=== PATIENT | female | born 1970 | race Caucasian/White ===

== ENCOUNTER 2020-10-21 11:00 | Outpatient (RCR) | payer OTHER, SELFPAY | END 2020-12-15 11:25 | disposition home or self-care (01) | LOC: HO.OT 11:00 | PROVIDERS: PCP Family Medicine; Visit Provider Surgery Surgery of the Hand | DX: Z98.890 Other specified postprocedural states (principal) | CPT/HCPCS: 29125; 97035; 97110; 97140; 97166; 97760 ==